=== PATIENT | female | born 1955 | race African-American/Black ===

== ENCOUNTER 2017-05-19 07:45 | Emergency (ER) | payer OTHER, MEDICAID ==
[~2017-05-19 07:45] MED LIST: CIPR250T2 PO; LISI-366 PO; SIMV40TA OR
[2017-05-19 07:46] VITALS: BP 202/115; PULSE 95; RESP 20; TEMP 99.2; O2SAT 97
[2017-05-19] MEDS ORDERED: HYDR-3583 PO (08:00)
[2017-05-19] MEDS ORDERED: SIMV40TA PO (08:00)
[2017-05-19] MEDS ORDERED: LISI40TA PO (08:00)
[2017-05-19 08:12] VITALS: O2SAT 96
[2017-05-19 08:20] VITALS: BP 191/90; PULSE 90; RESP 18; O2SAT 97
[2017-05-19 08:25] LABS: AUTOMATED NEUTROPHIL # 9.6 TH/MM3 (1.8-7.7); BASOPHIL % 0.2 % (0.0-2.0); EOSINOPHIL % 0.1 % (0.0-4.0); HEMATOCRIT 46.3 % (35.0-46.0); HEMOGLOBIN 15.6 GM/DL (11.6-15.3); LYMPH % 6.8 % (9.0-44.0); LYMPHOCYTE # 0.7 TH/MM3 (1.0-4.8); MEAN CELL VOLUME 89.7 FL (80.0-100.0); MEAN CORPUSCULAR HEMOGLOBIN 30.2 PG (27.0-34.0); MEAN CORPUSCULAR HGB CONC 33.6 % (32.0-36.0); MEAN PLATELET VOLUME 9.1 FL (7.0-11.0); MONOCYTE # 0.3 TH/MM3 (0-0.9); NEUT % 89.9 % (16.0-70.0); PLATELET COUNT 226 TH/MM3 (150-450); RED BLOOD COUNT 5.16 MIL/MM3 (4.00-5.30); RED CELL DISTRIBUTION WIDTH 15.2 % (11.6-17.2); WHITE BLOOD COUNT 10.7 TH/MM3 (4.0-11.0)
[2017-05-19 08:30] LABS: BACTERIA, URINE RARE /hpf; BILIRUBIN, URINE NEG (NEG); BLOOD, URINE SMALL (NEG); GLUCOSE,URINE NEG (NEG); KETONE, URINE 40 mg/dL (NEG); MUCUS URINE FEW /lpf (OCC); NITRITE,URINE NEG (NEG); PH, URINE 5.5 (5.0-8.5); SQUAMOUS EPITHELIAL CELL URINE 1 /hpf (0-5); URINE COLOR YELLOW (YELLW/STRAW); URINE LEUKOCYTE ESTERASE NEG (NEG)
[2017-05-19] MEDS ORDERED: ONDANSETRON HCL 4 MG/2 ML VIAL IV PUSH ONE (08:30)
[2017-05-19 08:56] LABS: ALBUMIN 4.3 GM/DL (3.4-5.0); AST (GOT) 29 U/L (15-37); BLOOD UREA NITROGEN 19 MG/DL (7-18); CALCIUM 9.2 MG/DL (8.5-10.1); CHLORIDE 108 MEQ/L (98-107); CREATININE 0.84 MG/DL (0.50-1.00); GLOMERULAR FILTRATION RATE 83 ML/MIN (>89); GLUCOSE,RANDOM 134 MG/DL (74-106); SODIUM (NA) 140 MEQ/L (136-145)
[2017-05-19 08:57] LABS: ALT (GPT) 31 U/L (10-53)
[2017-05-19 08:59] LABS: ALKALINE PHOSPHATASE 79 U/L (45-117); TOTAL BILIRUBIN ADULT 0.4 MG/DL (0.2-1.0); TOTAL PROTEIN 8.2 GM/DL (6.4-8.2)
--- NOTE | 2017-05-19 09:01 | PD ---
HPI Chief Complaint: GI Complaint Time Seen by Provider: 08:02 Travel History International Travel<30 days: No Contact w/Intl Traveler<30days: No Traveled to known affect area: No History of Present Illness HPI 62-year-old female presents after getting vomiting and diarrhea with lower abdominal pain since last night at about 11 PM. She denies any sick contacts. She states she feels like she may be a bad food. Quality is crampy. Severity is moderate. Location is lower. She denies specific modifying factors. Duration since 11 PM last night. She denies any blood in either PFSH Past Medical History Arthritis: Yes Blood Disorders: No Cancer: No Cardiovascular Problems: Yes High Cholesterol: Yes Diminished Hearing: No Endocrine: No Gastrointestinal Disorders: Yes GERD: Yes Genitourinary: No Headaches: Yes Hypertension: Yes Immune Disorder: No Musculoskeletal: Yes (ARTHRITIS) Psychiatric: No Respiratory: Yes Tetanus Vaccination: < 5 Years Past Surgical History Other Surgery: Yes Social History Alcohol Use: Yes (socially ) Tobacco Use: Yes (1 pack a week ) Substance Use: No Allergies-Medications (Allergen,Severity, Reaction): Coded Allergies: Sulfa (Sulfonamide Antibiotics) (Unverified Allergy, Severe, N/V, 05/19/17) ferrous fumarate (Unverified Allergy, Severe, N/V, 05/19/17) ferrous sulfate (Unverified Allergy, Severe, N/V, 05/19/17) ferumoxytol (Unverified Allergy, Severe, N/V, 05/19/17) iron (Unverified Allergy, Severe, N/V, 05/19/17) multivitamin infusion, adult no.4 with vitamin K (Unverified Allergy, Severe, N/V, 05/19/17) multivitamin with iron,other minerals (Unverified Allergy, Severe, N/V, 05/19/17) Reported Meds & Prescriptions Reported Meds & Active Scripts Active Reported Hydrocodone-Acetaminophen 10-325 mg Tab 1 Tab PO Q6H PRN Lisinopril 40 Mg Tab 40 Mg PO DAILY Simvastatin 40 Mg Tab 40 Mg PO HS Review of Systems Except as stated in HPI: all other systems reviewed are Neg Physical Exam Narrative GENERAL: 62-year-old female in no apparent distress SKIN: Focused skin assessment warm/dry. HEAD: Atraumatic. Normocephalic. EYES: Pupils equal and round. No scleral icterus. No injection or drainage. ENT: No nasal bleeding or discharge. Mucous membranes pink and moist. NECK: Trachea midline. No JVD. CARDIOVASCULAR: Regular rate and rhythm. RESPIRATORY: No accessory muscle use. No tachypnea noted GASTROINTESTINAL: Abdomen soft, mild tenderness diffusely, nondistended. NEUROLOGICAL: Awake and alert. No obvious cranial nerve deficits. Motor grossly within normal limits. Normal speech. PSYCHIATRIC: Appropriate mood and affect; insight and judgment normal. Data Data Last Documented VS Vital Signs Date Time Temp Pulse Resp B/P (MAP) Pulse Ox O2 Delivery O2 Flow Rate FiO2 05/19/17 08:12 96 Room Air 05/19/17 07:46 99.2 95 20 Orders Orders Complete Blood Count With Diff (05/19/17 08:02) Comprehensive Metabolic Panel (05/19/17 08:02) Urinalysis - C+S If Indicated (05/19/17 08:02) Lipase (05/19/17 08:02) Ct Abd/Pel W Iv Contrast(Rout) (05/19/17 ) Iv Access Insert/Monitor (05/19/17 08:02) Oximetry (05/19/17 08:02) Ondansetron Inj (Zofran Inj) (05/19/17 08:30) Iohexol 350 Inj (Omnipaque 350 Inj) (05/19/17 09:21) Oral Rehydration (05/19/17 09:40) Labs Laboratory Tests Test 05/19/17 08:00 05/19/17 08:15 White Blood Count 10.7 TH/MM3 Red Blood Count 5.16 MIL/MM3 Hemoglobin 15.6 GM/DL Hematocrit 46.3 % Mean Corpuscular Volume 89.7 FL Mean Corpuscular Hemoglobin 30.2 PG Mean Corpuscular Hemoglobin Concent 33.6 % Red Cell Distribution Width 15.2 % Platelet Count 226 TH/MM3 Mean Platelet Volume 9.1 FL Neutrophils (%) (Auto) 89.9 % Lymphocytes (%) (Auto) 6.8 % Monocytes (%) (Auto) 3.0 % Eosinophils (%) (Auto) 0.1 % Basophils (%) (Auto) 0.2 % Neutrophils # (Auto) 9.6 TH/MM3 Lymphocytes # (Auto) 0.7 TH/MM3 Monocytes # (Auto) 0.3 TH/MM3 Eosinophils # (Auto) 0.0 TH/MM3 Basophils # (Auto) 0.0 TH/MM3 CBC Comment DIFF FINAL Differential Comment Blood Urea Nitrogen 19 MG/DL Creatinine 0.84 MG/DL Random Glucose 134 MG/DL Total Protein 8.2 GM/DL Albumin 4.3 GM/DL Calcium Level 9.2 MG/DL Alkaline Phosphatase 79 U/L Aspartate Amino Transf (AST/SGOT) 29 U/L Alanine Aminotransferase (ALT/SGPT) 31 U/L Total Bilirubin 0.4 MG/DL Sodium Level 140 MEQ/L Potassium Level 4.0 MEQ/L Chloride Level 108 MEQ/L Carbon Dioxide Level 25.0 MEQ/L Anion Gap 7 MEQ/L Estimat Glomerular Filtration Rate 83 ML/MIN Lipase 117 U/L Urine Color YELLOW Urine Turbidity CLEAR Urine pH 5.5 Urine Specific [place] 1.027 Urine Protein 100 mg/dL Urine Glucose (UA) NEG mg/dL Urine Ketones 40 mg/dL Urine Occult Blood SMALL Urine Nitrite NEG Urine Bilirubin NEG Urine Urobilinogen LESS THAN 2.0 MG/DL Urine Leukocyte Esterase NEG Urine RBC LESS THAN 1 /hpf Urine WBC 2 /hpf Urine Squamous Epithelial Cells 1 /hpf Urine Bacteria RARE /hpf Urine Mucus FEW /lpf Microscopic Urinalysis Comment CULT NOT INDICATED MDM Medical Decision Making Medical Screen Exam Complete: Yes Emergency Medical Condition: Yes Medical Record Reviewed: Yes (Past history confirmed) Interpretation(s) CBC & BMP Diagram 05/19/17 08:00 Total Protein 8.2, Albumin 4.3, Calcium Level 9.2, Alkaline Phosphatase 79, Aspartate Amino Transf (AST/SGOT) 29, Alanine Aminotransferase (ALT/SGPT) 31, Total Bilirubin 0.4 Last 24 hours Impressions Abdomen/Pelvis CT 05/19/17 0000 Signed Impressions: Service Date/Time: Friday, May 19, 2017 09:11 - CONCLUSION: 1. Fluid-filled large bowel loops otherwise unremarkable study. 2. No acute inflammatory process. Lencho Steen MD Differential Diagnosis Gastroenteritis, obstruction, diverticulitis Narrative Course We will check blood work, urinalysis, CT scan, pelvis and this was Zofran and reevaluate ed workup no acute, no emesis here, tolerating liquids, Patient denies any new complaints and states that they are feeling better. Patient happy with care, all questions answered. Patient knows that follow up is incumbent on them and to return to the emergency room immediately if new or worsening symptoms develop. Patient given strict return precautions, vitals reviewed and are normal , agrees to further workup as an outpatient. Diagnosis Primary Impression: Vomiting and diarrhea Additional Impression: Abdominal pain Qualified Codes: R10.9 - Unspecified abdominal pain Patient Instructions: General Instructions Additional Instructions: return as needed, zofran as needed, follow with primary this week for recheck Med/Other Pt SpecificInfo: Prescription(s) given Scripts Ondansetron Odt (Zofran Odt) 4 Mg Tab 4 MG SL Q6HR Y for Nausea/Vomiting, #10 TAB 0 Refills Prov: Rocio Wise MD 05/19/17 Disposition: 01 DISCHARGE HOME Condition: Stable Rocio Wise MD May 19, 2017 09:00
[2017-05-19] MEDS ORDERED: IOHEXOL 350 MG/ML 10 ML VIAL (for RAD DIAG) IVCONTRAST ONE (09:21)
--- NOTE | 2017-05-19 09:37 | RADRPT ---
EXAM DATE/TIME: 05/19/2017 09:11 [facility] COMPARISON: No previous studies available for comparison. INDICATIONS : Nausea, vomiting, diarrhea, diffuse abdominal pain. IV CONTRAST: 100 cc Omnipaque 350 (iohexol) IV ORAL CONTRAST: No oral contrast ingested. RADIATION DOSE: 13.73 CTDIvol (mGy) MEDICAL HISTORY : Cardiovascular disease. Hypercholesterolemia. Hypertension.GERD,Smoker, SURGICAL HISTORY : Pacemaker. Knee ENCOUNTER: Initial ACUITY: 1 day PAIN SCALE: 10/10 LOCATION: diffuse abdomen TECHNIQUE: Volumetric scanning of the abdomen and pelvis was performed. Using automated exposure control and ad justment of the mA and/or kV according to patient size, radiation dose was kept as low as reasonably achievable to obtain optimal diagnostic quality images. DICOM format image data is available electro nically for review and comparison. FINDINGS: LOWER LUNGS: The visualized lower lungs are clear. LIVER: Homogeneous density without lesion. There is no dilation of the biliary tree. No calcified gallston es. SPLEEN: Normal size without lesion. PANCREAS: Within normal limits. KIDNEYS: Normal in size and shape. There is no mass, stone or hydronephrosis. ADRENAL GLANDS: Within normal limits. VASCULAR: There is no aortic aneurysm. BOWEL/MESENTERY: The stomach, small bowel, and colon demonstrate no acute abnormality. Fluid-filled large bowel loops. There is no free intraperitoneal air or fluid. ABDOMINAL WALL: Within normal limits. RETROPERITONEUM: There is no lymphadenopathy. BLADDER: No wall thickening or mass. REPRODUCTIVE: Within normal limits. INGUINAL: There is no lymphadenopathy or hernia. MUSCULOSKELETAL: Mild degenerative changes and scoliosis lumbar spine. CONCLUSION: 1. Fluid-filled large bowel loops otherwise unremarkable study. 2. No acute inflammatory process. Lencho Steen MD on May 19, 2017 at 9:29 Board Certified Radiologist. This report was verified electronically.
[2017-05-19] MEDS ORDERED: ZOFR4TAB3 SL (10:01)
[2017-05-19 10:47] VITALS: BP 190/94
== END 2017-05-19 10:45 | disposition home or self-care (01) ==
LOC: NEPC 07:45
DX: R11.10 Vomiting, unspecified (principal); R19.7 Diarrhea, unspecified; R10.30 Lower abdominal pain, unspecified; M19.90 Unspecified osteoarthritis, unspecified site; E78.00 Pure hypercholesterolemia, unspecified; K21.9 Gastro-esophageal reflux disease without esophagitis; I10 Essential (primary) hypertension; F17.200 Nicotine dependence, unspecified, uncomplicated; Z79.899 Other long term (current) drug therapy
CPT/HCPCS: 74177; 80053; 81001; 83690; 85025; 96374; 99284; J2405; Q9967